=== PATIENT | female | born 1995 | race African-American/Black ===

== ENCOUNTER 2019-11-12 20:41 | Inpatient (IN) | payer MEDICAID, OTHER ==
[~2019-11-12] VITALS: Ht 172.7 cm; Wt 81.2 kg
[2019-11-12] MEDS ORDERED: PREN-176 PO (22:31)
[2019-11-12] MEDS ORDERED: DEXT 5%/LR + PITOCIN 20UNITS/L 1,000 ML IV SCH (23:04)
[2019-11-12] MEDS ORDERED: LIDOCAINE HCL 1% 20ML VIAL (Pyxis) INJ INFIL SCH (23:15)
[2019-11-12] MEDS ORDERED: NALOXONE HCL 0.4 MG/ML 1ML VIAL IM PRN (23:15)
[2019-11-12] MEDS ORDERED: METHYLERGONOVINE MALEATE 0.2 MG/ML IM PRN (23:15)
[2019-11-12] MEDS: LACTATED RINGERS 1,000 ML IV SCH (23:20)
[2019-11-12] MEDS ORDERED: PENICILLIN G POTASSIUM 5 MMU in DEXT 5% WATER 100 ML IV NR (23:30)
[2019-11-12] MEDS: BUTORPHANOL TARTRATE 2 MG/ML VIAL IV PRN (23:44)
[2019-11-13 00:22] LABS: CLARITY URINE CLEAR (CLEAR); COLOR URINE YELLOW (YELLOW); KETONES URINE NEGATIVE (NEGATIVE); LEUKOCYTE ESTERASE URINE TRACE (NEGATIVE); NITRITE URINE NEGATIVE (NEGATIVE); OCCULT BLOOD URINE NEGATIVE (NEGATIVE); PH URINE 7.5 (4.5-8.0); PROTEIN URINE NEGATIVE (NEGATIVE); SPECIFIC GRAVITY URINE 1.007 (1.005-1.030); UROBILINOGEN URINE 0.2 E.U./dL (0.2-1.0)
[2019-11-13 00:22] LABS: BASOPHILS % 0.3 % (0.0-2.0); EOSINOPHILS % 0.6 % (0.0-5.0); HEMATOCRIT. 36.4 % (36.0-48.0); HEMOGLOBIN. 12.2 g/dL (12.0-16.0); LYMPHOCYTES % 16.5 % (20.0-50.0); MEAN CORPUSCULAR VOLUME 83.3 fL (81.0-99.0); MEAN PLATELET VOLUME 8.7 fl (7.4-10.4); MONOCYTES % 8.2 % (2.0-8.0); NEUTROPHILS % 74.4 % (40.0-76.0); PLATELET 235 x1000/uL (130-400); RED BLOOD CELL COUNT 4.37 mill/uL (4.2-5.4); RED CELL DISTRIBUTION WIDTH 13.6 % (11.6-14.6)
[2019-11-13 00:25] LABS: INR 0.9; PARTIAL THROMBOPLASTIN TIME 29.1 sec (23.4-31.0)
[2019-11-13 00:48] LABS: *AMPHETAMINES SCREEN URINE NEGATIVE (NEGATIVE); *BARBITURATES SCREEN URINE NEGATIVE (NEGATIVE)
[2019-11-13 00:49] LABS: *BENZODIAZEPINES SCREEN URINE NEGATIVE (NEGATIVE); *COCAINE SCREEN URINE NEGATIVE (NEGATIVE); METHADONE URINE SCREEN NEGATIVE (NEGATIVE); OPIATES URINE SCREEN NEGATIVE (NEGATIVE); PHENCYCLIDINE URINE SCREEN NEGATIVE (NEGATIVE)
[2019-11-13 00:51] LABS: CANNABINOID URINE SCREEN PRESUMTIVE POSITIVE (NEGATIVE)
[2019-11-13 01:06] LABS: HEPATITIS B SURFACE ANTIGEN NEGATIVE
[2019-11-13] MEDS: BUTORPHANOL TARTRATE 2 MG/ML VIAL IV PRN (01:44)
[2019-11-13] MEDS: LACTATED RINGERS 1,000 ML IV SCH (01:46)
[2019-11-13] MEDS ORDERED: PENICILLIN G POTASSIUM 2.5 MMU in DEXTROSE 5% WATER 50 ML IV SCH (04:00)
[2019-11-13] MEDS ORDERED: OXYCODONE HCL/ACETAMINOPHEN 5/325MG TABLET PO PRN ×2 (04:30)
[2019-11-13] MEDS ORDERED: RHO(D) IMMUNE GLOBULIN 300 MCG/SYR IM PRN (04:30)
[2019-11-13] MEDS ORDERED: HEMORRHOIDAL SUPP PR PRN (04:30)
[2019-11-13] MEDS ORDERED: IBUPROFEN 400MG TABLET PO PRN (04:30)
[2019-11-13] MEDS ORDERED: BENZOCAINE/LANOLIN/ALOE VERA SPRAY TOP PRN (04:30)
[2019-11-13] MEDS ORDERED: LANOLIN OINT 7GM TUBE TOP PRN (04:30)
[2019-11-13] MEDS ORDERED: GLYCERIN/WITCH HAZEL LEAF MEDICATED PAD TOP PRN (04:30)
[2019-11-13] MEDS ORDERED: DIPHENHYDRAMINE 25MG CAPSULE PO PRN (04:30)
[2019-11-13] MEDS ORDERED: BISACODYL 10MG SUPP PR PRN (04:30)
[2019-11-13] MEDS: DEXT 5%/LR + PITOCIN 20UNITS/L 1,000 ML IV SCH ×2 (04:31→05:19)
[2019-11-13] MEDS: LABETALOL HCL 100MG TABLET PO SCH ×2 (06:52→21:24)
[2019-11-13 07:19] LABS: CHLORIDE 108 mEq/L (98-107)
[2019-11-13 07:28] LABS: D-DIMER 4.87 mg/L FEU (<0.50)
[2019-11-13] MEDS: MAGNESIUM/ALUMINUM HYDROXIDE/SIMETHICONE 30ML UDC PO SCH ×4 (07:30→21:25)
[2019-11-13 08:00] VITALS: BP 113/60
[2019-11-13] MEDS: SIMETHICONE 80MG TABLET CHEW PO SCH ×4 (08:00→21:29)
[2019-11-13] MEDS: IBUPROFEN 800MG TABLET PO PRN ×2 (08:08→19:00)
[2019-11-13] MEDS: PRENATAL VIT/FE FUMARATE/FA TABLET PO SCH (08:24)
[2019-11-13 11:06] LABS: HEMATOCRIT. 33.5 % (36.0-48.0); HEMOGLOBIN. 11.4 g/dL (12.0-16.0); MEAN CORPUSCULAR HEMOGLOBIN 28.1 pg (28.0-32.0); MEAN CORPUSCULAR VOLUME 82.9 fL (81.0-99.0); MEAN PLATELET VOLUME 8.8 fl (7.4-10.4); PLATELET 229 x1000/uL (130-400); RED BLOOD CELL COUNT 4.04 mill/uL (4.2-5.4); RED CELL DISTRIBUTION WIDTH 13.7 % (11.6-14.6)
[2019-11-13 11:32] LABS: PLATELET ESTIMATE NORMAL
[2019-11-13 12:11] VITALS: BP 115/69
[2019-11-13 16:00] VITALS: BP 121/81
[2019-11-13 20:00] VITALS: BP 127/84
[2019-11-13] MEDS ORDERED: DOCUSATE SODIUM 100MG CAPSULE PO SCH (21:00)
[2019-11-13 21:20] VITALS: BP 130/69
[2019-11-13] MEDS ORDERED: METHYLERGONOVINE MALEATE 0.2 MG/ML IM PRN (23:16)
[2019-11-14 04:00] VITALS: BP 123/82
[2019-11-14 07:28] VITALS: BP 125/83
[2019-11-14] MEDS: MAGNESIUM/ALUMINUM HYDROXIDE/SIMETHICONE 30ML UDC PO SCH (08:17)
[2019-11-14] MEDS: PRENATAL VIT/FE FUMARATE/FA TABLET PO SCH (08:18)
[2019-11-14] MEDS: SIMETHICONE 80MG TABLET CHEW PO SCH (08:18)
[2019-11-14] MEDS: LABETALOL HCL 100MG TABLET PO SCH (08:19)
[2019-11-14] MEDS: IBUPROFEN 800MG TABLET PO PRN (08:19)
[2019-11-17 07:09] LABS: CANNABINOID CONFIRMATION URINE Positive (.)
== END 2019-11-14 11:00 | disposition home or self-care (01) | DRG 560 ==
LOC: 8 EST LDRP 20:41 → OBSVTOIN 20:41 → 8EST 11-13 05:42
PROVIDERS: ADMIT Obstetrics & Gynecology; ATTEND Obstetrics & Gynecology
PROC: 10E0XZZ Delivery of Products of Conception, External Approach (ICD-10-PCS; principal; 2019-11-13)
PROC: 0HQ9XZZ Repair Perineum Skin, External Approach (ICD-10-PCS; 2019-11-13)
DX: O99.824 Streptococcus B carrier state complicating childbirth (principal); Z37.0 Single live birth; O70.0 First degree perineal laceration during delivery; Z3A.38 38 weeks gestation of pregnancy
CPT/HCPCS: 36415; 80053; 80305; 80349; 81003; 84550; 85025; 85379; 85384; 86592; 86703; 86762; 86850; 86900; 87340; 99281; G0378; J0595; J2540; J2590; J3490; J7060; J7120